=== PATIENT | male | born 1960 | race African-American/Black ===

== ENCOUNTER 2016-11-28 22:12 | Emergency (ER) | payer MEDICAID ==
[~2016-11-28] VITALS: Ht 193 cm; Wt 147.5 kg
[~2016-11-28 22:12] MED LIST: ALLO300T2 PO; ALPR0.5T3 PO; ATOR1TAB18 PO; BAYE325T; CARV25TA PO
[2016-11-28 22:14] VITALS: BP 158/88; PULSE 88; RESP 16; TEMP 98.2; O2SAT 96
--- NOTE | 2016-11-28 22:37 | PD ---
HPI Chief Complaint: Laceration/Skin Injury Time Seen by Provider: 22:33 Travel History International Travel<30 days: No Contact w/Intl Traveler<30days: No Traveled to known affect area: No History of Present Illness HPI 56-year-old male who is right handed, presents to the emergency department for evaluation of a laceration sustained to his left second digit. Patient states a saw-ad punctured his finger and cut it. Denies any alterations in sensation. No limitations range of motion. Patient has had a tetanus vaccination within the last 5 years. He has no symptoms to report. PFSH Past Medical History Arthritis: Yes Asthma: Yes Anxiety: Yes Depression: Yes Heart Rhythm Problems: Yes (occ palpatations) Cardiac Catheterization: Yes (X2- NO STENTS) Cardiomyopathy: Yes Cardiovascular Problems: Yes (HTN, ) High Cholesterol: Yes Chest Pain: Yes Congestive Heart Failure: Yes COPD: No Coronary Artery Disease: Yes Diabetes: No Diminished Hearing: No Gastrointestinal Disorders: Yes (COLONOSCOPY & UPPER GI) GERD: Yes Gout: Yes Headaches: Yes Hiatal Hernia: Yes Hypertension: Yes Implanted Vascular Access Dvce: No Kidney Stones: Yes Musculoskeletal: Yes (DEGENERATIVE DISC DISEASE) Migraines: Yes Ulcer: Yes PNEUMOCCOCAL Vaccine (Year): 1 Past Surgical History Body Medical Devices: SCREW IN CHIN Neurologic Surgery: No Oral Surgery: Yes (RIGHT JAW FX REPAIR) Other Surgery: Yes (CYST REMOVED FROM RIGHT FOREARM) Social History Alcohol Use: No Tobacco Use: No Substance Use: No Allergies-Medications (Allergen,Severity, Reaction): Coded Allergies: iodine (Unverified Allergy, Severe, "THROAT CLOSES", 11/06/16) potassium iodide (Unverified Allergy, Severe, "THROAT CLOSES", 11/06/16) povidone-iodine (Unverified Allergy, Severe, "THROAT CLOSES", 11/06/16) shellfish derived (Unverified Allergy, Severe, THROAT SWELLS, 11/06/16) sodium iodide (Unverified Allergy, Severe, "THROAT CLOSES", 11/06/16) sodium iodide (Unverified Allergy, Severe, "THROAT CLOSES", 11/06/16) Reported Meds & Prescriptions Reported Meds & Active Scripts Active Ibuprofen 800 Mg Tab 800 Mg PO Q8H PRN Keflex (Cephalexin) 500 Mg Cap 500 Mg PO Q6H 5 Days Reported Carvedilol 25 Mg Tab 25 Mg PO DAILY Allopurinol 300 Mg Tab 600 Mg PO DAILY PRN Alprazolam 0.5 Mg Tab 0.5 Mg PO Q4H PRN Atorvastatin (Atorvastatin Calcium) 80 Mg Tab 80 Mg PO HS Cande Aspirin (Aspirin) 325 Mg Tab Review of Systems Except as stated in HPI: all other systems reviewed are Neg Physical Exam Narrative GENERAL: Well-nourished, well-developed patient in no acute distress SKIN: Focused skin assessment warm/dry. 2 cm well approximated laceration on the lateral aspect of the volar surface of the distal left second digit. No bleeding. No drainage. Patient has full flexion extension of the digit. Sensation intact distal affected digit. HEAD: Normocephalic. EYES: No scleral icterus. No injection or drainage. NECK: Supple, trachea midline. No JVD or lymphadenopathy. CARDIOVASCULAR: Regular rate and rhythm without murmurs, gallops, or rubs. RESPIRATORY: Breath sounds equal bilaterally. No accessory muscle use. MUSCULOSKELETAL: No cyanosis, or edema. Data Data Last Documented VS Vital Signs Date Time Temp Pulse Resp B/P (MAP) Pulse Ox O2 Delivery O2 Flow Rate FiO2 11/28/16 23:23 11/28/16 22:14 98.2 88 16 96 Room Air Orders Orders Finger ([id number]) (11/28/16 ) Wound Care (11/28/16 22:36) Splint Or Brace Apply/Monitor (11/28/16 23:09) Finger Splint (11/28/16 ) MDM Medical Decision Making Medical Screen Exam Complete: Yes Emergency Medical Condition: Yes Medical Record Reviewed: Yes Differential Diagnosis Laceration superficial versus deep versus puncture wound versus abrasion versus avulsion versus foreign body versus open fracture Narrative Course 56-year-old male presents to emergency department for evaluation laceration left second digit. X-ray imaging is without acute abnormality. Wound is cleansed and dressed appropriately with a bird cage splint in place. It does not need approximation. Patient will be started on oral antibiotics empirically due to the puncture nature of the injury. He agrees to return immediately with any acute worsening symptoms. Diagnosis Primary Impression: Laceration of finger of left hand Qualified Codes: S61.211A - Laceration without foreign body of left index finger without damage to nail, initial encounter Additional Impression: Puncture wound Referrals: Primary Care Physician Patient Instructions: Acute Wound Care (DC), General Instructions Additional Instructions: Keep the area clean and dry. You may shower Apply antibiotic ointment and Band-Aid Wear splint for protection and comfort To the emergency department with any acute worsening of symptoms Med/Other Pt SpecificInfo: Prescription(s) given Scripts Ibuprofen (Ibuprofen) 800 Mg Tab 800 MG PO Q8H Y for Pain/Inflammation, #30 TAB 0 Refills Prov: Svitlana Peterson 11/28/16 Cephalexin (Keflex) 500 Mg Cap 500 MG PO Q6H for Infection for 5 Days, CAP 0 Refills Prov: Svitlana Peterson 11/28/16 Disposition: 01 DISCHARGE HOME Condition: Stable Svitlana Peterson Nov 28, 2016 22:37
--- NOTE | 2016-11-28 23:04 | RADRPT ---
EXAM DATE/TIME: 11/28/2016 22:53 [place] COMPARISON: No previous studies available for comparison. INDICATIONS : Patient cut finger with saw. MEDICAL HISTORY : None. SURGICAL HISTORY : None. ENCOUNTER: Initial ACUITY: 1 day PAIN SCORE: 6/10 LOCATION: Left 2nd digit. FINDINGS: Examination of the second digit of the left hand demonstrates no evidence of fracture or dislocation. No radiopaque foreign bodies are seen. Soft tissue swelling in the distal digit. CONCLUSION: 1. No acute fracture or dislocation. Carlyle Cisneros MD on November 28, 2016 at 23:01 Board Certified Radiologist. This report was verified electronically.
[2016-11-28] MEDS ORDERED: IBUP800T23 PO (23:20)
[2016-11-28] MEDS ORDERED: CEPH-460 PO (23:20)
== END 2016-11-28 23:31 | disposition home or self-care (01) ==
LOC: NEPD 22:12
DX: S61.211A Laceration without foreign body of left index finger without damage to nail, initial encounter (principal); I11.0 Hypertensive heart disease with heart failure; I50.9 Heart failure, unspecified; I25.10 Atherosclerotic heart disease of native coronary artery without angina pectoris; K21.9 Gastro-esophageal reflux disease without esophagitis; M10.9 Gout, unspecified; J45.909 Unspecified asthma, uncomplicated; F41.9 Anxiety disorder, unspecified; W45.8XXA Other foreign body or object entering through skin, initial encounter
CPT/HCPCS: 29130; 73140

== ENCOUNTER 2017-01-15 01:50 | Emergency (ER) | payer MEDICAID ==
[~2017-01-15] VITALS: Ht 193 cm; Wt 150.0 kg
[~2017-01-15 01:50] MED LIST changes: +CEPH-460 PO; +IBUP800T23 PO
[2017-01-15 01:51] VITALS: BP 141/88; PULSE 66; RESP 16; TEMP 98; O2SAT 98
--- NOTE | 2017-01-15 02:26 | PD ---
HPI Chief Complaint: Abdominal Pain Time Seen by Provider: 02:07 Travel History International Travel<30 days: No Contact w/Intl Traveler<30days: No Traveled to known affect area: No History of Present Illness HPI The patient is a 56 year old male who presents to the [facility] emergency department with a history of blood in his urine that began 2 weeks ago. He has dysuria, urinary frequency. He denies any urinary urgency. He has had a history of kidney stones in the past, however the symptoms do not feel similar. He denies having any abdominal pain or back pain that is new. Subsequent to that, a week ago after intercourse, he developed a blood blister that opened up on the glans of the penis and never healed. He reports that he has a burning sensation at the site. He denies having any new sexual partners. He reports having this in the past and it was able to be treated with Polysporin. He reports that the pain as a burning sensation. The patient reports that he is uncircumcised. The patient on review of systems denies having any recent fevers , cough, congestion, neck pain, chest pain, shortness of breath, abdominal pain , vomiting, diarrhea, or neurologic symptoms. The patient denies having any scrotal pain or swelling. He denies having any penile discharge. He reports that he last moved his bowels earlier today. He denies having any blood in his stool. [facility] Past Medical History Narrative Medical The patient's past medical history is significant for kidney stones, CHF, HTN, gout, hyperlipidemia, anxiety and depression, chronic back pain due to degenerative disc disease. PCP: Dr. Rodo Sutton. Arthritis: Yes Asthma: Yes Anxiety: Yes Depression: Yes Heart Rhythm Problems: Yes (occ palpatations) Cardiac Catheterization: Yes (X2- NO STENTS) Cardiomyopathy: Yes Cardiovascular Problems: Yes (HTN, ) High Cholesterol: Yes Chest Pain: Yes Congestive Heart Failure: Yes COPD: No Coronary Artery Disease: Yes Diabetes: No Diminished Hearing: No Gastrointestinal Disorders: Yes (COLONOSCOPY & UPPER GI) GERD: Yes Gout: Yes Headaches: Yes Hiatal Hernia: Yes Hypertension: Yes Implanted Vascular Access Dvce: No Kidney Stones: Yes Musculoskeletal: Yes (DEGENERATIVE DISC DISEASE) Neurologic: Yes (DEGENERATIVE DISC DISEASE) Psychiatric: Yes Immunizations Current: Yes Migraines: Yes Ulcer: Yes PNEUMOCCOCAL Vaccine (Year): 1 Past Surgical History Narrative Surgical The patient's past surgical history is significant for facial surgery, cyst removal from the right forearm, history of cardiac catheterization which he reports was found to be normal. Body Medical Devices: SCREW IN CHIN Coronary Artery Bypass Graft: No Neurologic Surgery: No Oral Surgery: Yes (RIGHT JAW FX REPAIR) Other Surgery: Yes (CYST REMOVED FROM RIGHT FOREARM) Family History Family Myocardial Infarction: Yes Social History Alcohol Use: No Tobacco Use: No Substance Use: No Allergies-Medications (Allergen,Severity, Reaction): Coded Allergies: iodine (Unverified Allergy, Severe, "THROAT CLOSES", 01/15/17) potassium iodide (Unverified Allergy, Severe, "THROAT CLOSES", 01/15/17) povidone-iodine (Unverified Allergy, Severe, "THROAT CLOSES", 01/15/17) shellfish derived (Unverified Allergy, Severe, THROAT SWELLS, 01/15/17) sodium iodide (Unverified Allergy, Severe, "THROAT CLOSES", 01/15/17) sodium iodide (Unverified Allergy, Severe, "THROAT CLOSES", 01/15/17) Reported Meds & Prescriptions Reported Meds & Active Scripts Active Miconazole Topical 2% Cream 1 Applic TOPICAL BID 14 Days Ibuprofen 800 Mg Tab 800 Mg PO Q8H PRN Keflex (Cephalexin) 500 Mg Cap 500 Mg PO Q6H 5 Days Reported Carvedilol 25 Mg Tab 25 Mg PO DAILY Allopurinol 300 Mg Tab 600 Mg PO DAILY PRN Alprazolam 0.5 Mg Tab 0.5 Mg PO Q4H PRN Atorvastatin (Atorvastatin Calcium) 80 Mg Tab 80 Mg PO HS Cande Aspirin (Aspirin) 325 Mg Tab [place] 10mg po q tid prn pain Review of Systems Except as stated in HPI: all other systems reviewed are Neg General / Constitutional: No: Fever Eyes: No: Visual changes HENT: No: Headaches Cardiovascular: No: Chest Pain or Discomfort Respiratory: No: Shortness of Breath Gastrointestinal: No: Abdominal Pain Genitourinary: Positive: Frequency, Dysuria, Hematuria, No: Urgency Musculoskeletal: No: Pain Skin: No Rash Neurologic: No: Weakness Psychiatric: No: Depression Endocrine: No: Polydipsia Hematologic/Lymphatic: No: Easy Bruising Physical Exam Narrative General: The patient is a well-developed well-nourished male in no acute distress. Head and Neck exam: Head is normocephalic atraumatic. Eyes: EOMI, pupils are equal round and reactive to light. Nose: Midline septum with pink mucous membranes Mouth: Dentition unremarkable. Moist mucus membranes. Posterior oropharynx is not erythematous. No tonsillar hypertrophy. Uvula midline. Airway patent. Neck: No palpable lymphadenopathy. No nuchal rigidity. No thyromegaly. Cardiovascular: Regular rate and rhythm without murmurs, gallops, or rubs. Lungs: Clear to auscultation bilaterally. No wheezes, rhonchi, or rales. Abdomen: Soft, without tenderness to palpation in all 4 quadrants of the abdomen. No guarding, rebound, or rigidity. Normal bowel sounds are audible. No tenderness on palpation of McBurney's point. Extremities: No clubbing, cyanosis, or edema. 2+ pulses in all 4 extremities. Back: No spinous process tenderness to palpation. No costovertebral angle tenderness to palpation. Neurologic Exam: Grossly nonfocal. Skin Exam: Skin is warm and dry. Genital exam: The patient is a uncircumcised male. With retraction of the patient's foreskin the patient is noted to have erythema and superficial skin breakdown over the glans of the penis. This is consistent with a balanitis. No scrotal swelling or pain on palpation. No palpable hernia. Data Data Last Documented VS Vital Signs Date Time Temp Pulse Resp B/P (MAP) Pulse Ox O2 Delivery O2 Flow Rate FiO2 01/15/17 01:51 98.0 66 16 141/88 (105) 98 Room Air Orders Orders Complete Blood Count With Diff (01/15/17 02:38) Basic Metabolic Panel (Bmp) (01/15/17 02:38) Urinalysis - C+S If Indicated (01/15/17 02:38) Wound Culture And Gram Stain (01/15/17 02:38) Iv Access Insert/Monitor (01/15/17 02:38) Ecg Monitoring (01/15/17 02:38) Oximetry (01/15/17 02:38) Ed Discharge Order (01/15/17 03:35) Labs Laboratory Tests Test 01/15/17 02:50 White Blood Count 5.0 TH/MM3 Red Blood Count 4.38 MIL/MM3 Hemoglobin 13.3 GM/DL Hematocrit 38.6 % Mean Corpuscular Volume 88.1 FL Mean Corpuscular Hemoglobin 30.4 PG Mean Corpuscular Hemoglobin Concent 34.4 % Red Cell Distribution Width 13.0 % Platelet Count 216 TH/MM3 Mean Platelet Volume 7.7 FL Neutrophils (%) (Auto) 38.9 % Lymphocytes (%) (Auto) 51.1 % Monocytes (%) (Auto) 7.6 % Eosinophils (%) (Auto) 1.3 % Basophils (%) (Auto) 1.1 % Neutrophils # (Auto) 1.9 TH/MM3 Lymphocytes # (Auto) 2.5 TH/MM3 Monocytes # (Auto) 0.4 TH/MM3 Eosinophils # (Auto) 0.1 TH/MM3 Basophils # (Auto) 0.1 TH/MM3 CBC Comment DIFF FINAL Differential Comment Urine Color YELLOW Urine Turbidity CLEAR Urine pH 5.5 Urine Specific [place] 1.031 Urine Protein TRACE mg/dL Urine Glucose (UA) NEG mg/dL Urine Ketones NEG mg/dL Urine Occult Blood NEG Urine Nitrite NEG Urine Bilirubin NEG Urine Urobilinogen 2.0 MG/DL Urine Leukocyte Esterase TRACE Urine RBC 2 /hpf Urine WBC 3 /hpf Urine Squamous Epithelial Cells 1 /hpf Urine Hyaline Casts 10 /lpf Urine Mucus FEW /lpf Microscopic Urinalysis Comment CULT NOT INDICATED Blood Urea Nitrogen 11 MG/DL Creatinine 0.86 MG/DL Random Glucose 94 MG/DL Calcium Level 8.5 MG/DL Sodium Level 140 MEQ/L Potassium Level 4.3 MEQ/L Chloride Level 108 MEQ/L Carbon Dioxide Level 28.1 MEQ/L Anion Gap 4 MEQ/L Estimat Glomerular Filtration Rate 111 ML/MIN [facility] Medical Decision Making Medical Screen Exam Complete: Yes Emergency Medical Condition: Yes Medical Record Reviewed: Yes Differential Diagnosis Yeast balanitis, versus bacterial balanitis, versus kidney stone, versus cystitis, versus phimosis Narrative Course During the course of the patients emergency department visit, the patients history, examination, and differential diagnosis were reviewed with the patient. The patient was placed on a skin diving teacher with oximetry and frequent blood pressure monitoring. The patient had IV access obtained and blood work sent for analysis. The patients laboratory studies were reviewed and remarkable for white count of 5, hemoglobin 13.3, platelets 216 with lymphocytes 51.1, basic metabolic profile is remarkable for chloride of 108, anion gap 4, glucose 94, urinalysis is unremarkable. Wound culture is pending. The patient's symptoms are most consistent with a balanitis. The patient appears to have a superimposed bacterial infection associated with this. The patient will be discharged home with topical miconazole and oral Keflex. The patient is instructed to follow-up with his primary care physician for reexamination in one week for improvement. The patient is resting comfortably and feels better, is alert and in no distress. The patients results and examination findings were discussed with the patient. The repeat examination is unremarkable and benign. The history, exam, diagnostic testing, and current condition do not suggest any significant pathology to warrant further testing, continued ED treatment, admission, or surgical evaluation at this point. The vital signs have been stable. The patient does not have uncontrollable pain, intractable vomiting, or other significant symptoms. The patient's condition is stable and appropriate for discharge. The patient will pursue further outpatient evaluation with a primary care physician or other designated or consulting physician as indicated in the discharge instructions. The patient expressed understanding and was agreeable with this plan. Diagnosis Primary Impression: Balanitis Referrals: Primary Care Physician 1 week Patient Instructions: [place] (ED), General Instructions Med/Other Pt SpecificInfo: Prescription(s) given Scripts Cephalexin (Keflex) 500 Mg Capsule 500 MG PO Q8H for Infection, #30 CAP 0 Refills Prov: Zaida Landaverde MD 01/15/17 Miconazole Topical (Miconazole Topical) 2% Cream 1 APPLIC TOPICAL BID for 14 Days, GM 0 Refills Prov: Zaida Landaverde MD 01/15/17 Disposition: 01 DISCHARGE HOME Condition: Stable Zaida Landaverde MD Jan 15, 2017 02:26
[2017-01-15 03:09] LABS: AUTOMATED NEUTROPHIL # 1.9 TH/MM3 (1.8-7.7); BASOPHIL # 0.1 TH/MM3 (0-0.2); BASOPHIL % 1.1 % (0.0-2.0); EOSINOPHIL # 0.1 TH/MM3 (0-0.4); EOSINOPHIL % 1.3 % (0.0-4.0); HEMATOCRIT 38.6 % (39.0-51.0); HEMO FLAGS DIFF FINAL; LYMPH % 51.1 % (9.0-44.0); LYMPHOCYTE # 2.5 TH/MM3 (1.0-4.8); MEAN CELL VOLUME 88.1 FL (80.0-100.0); MEAN CORPUSCULAR HEMOGLOBIN 30.4 PG (27.0-34.0); MEAN CORPUSCULAR HGB CONC 34.4 % (32.0-36.0); MONO % 7.6 % (0.0-8.0); NEUT % 38.9 % (16.0-70.0); PLATELET COUNT 216 TH/MM3 (150-450); RED BLOOD COUNT 4.38 MIL/MM3 (4.50-5.90)
[2017-01-15] MEDS ORDERED: MICO2CRE34 TOPICAL (03:11)
[2017-01-15 03:17] LABS: BLOOD, URINE NEG (NEG); COMMENT (UR) CULT NOT INDICATED; CULTURE IF INDICATED CULT NOT INDICATED; GLUCOSE,URINE NEG (NEG); HYALINE CAST, URINE 10 /lpf (RARE); KETONE, URINE NEG (NEG); MUCUS URINE FEW /lpf (OCC); NITRITE,URINE NEG (NEG); PH, URINE 5.5 (5.0-8.5); SQUAMOUS EPITHELIAL CELL URINE 1 /hpf (0-5); URINE COLOR YELLOW (YELLW/STRAW)
[2017-01-15 03:28] LABS: BICARBONATE 28.1 MEQ/L (21.0-32.0); POTASSIUM 4.3 MEQ/L (3.5-5.1)
[2017-01-15] MEDS ORDERED: CEPH-460 PO (03:37)
== END 2017-01-15 03:49 | disposition home or self-care (01) ==
LOC: NEPE 01:50
DX: N48.1 Balanitis (principal); I11.0 Hypertensive heart disease with heart failure; I50.9 Heart failure, unspecified; M10.9 Gout, unspecified; E78.5 Hyperlipidemia, unspecified; J45.909 Unspecified asthma, uncomplicated; M19.90 Unspecified osteoarthritis, unspecified site; I25.10 Atherosclerotic heart disease of native coronary artery without angina pectoris; Z87.442 Personal history of urinary calculi
CPT/HCPCS: 80048; 81001; 85025; 86403; 87070; 99284

== ENCOUNTER 2017-07-06 18:21 | Emergency (ER) | payer MEDICAID ==
[~2017-07-06 18:21] MED LIST changes: -ATOR1TAB18 PO; +ATOR80TA45 PO; +IBUP1TAB7 PO; -IBUP800T23 PO; +MICO2CRE34 TOPICAL
[2017-07-06 18:24] VITALS: BP 158/85; PULSE 64; RESP 20; TEMP 97.8; O2SAT 100
[2017-07-06] MEDS ORDERED: SODIUM CHLORIDE 0.9% FLUSH 10 ML FLUSH IVF PRN (18:45)
[2017-07-06] MEDS ORDERED: ACETAMINOPHEN 325 MG TAB PO ONE (18:45)
[2017-07-06] MEDS ORDERED: SODIUM CHLOR 0.9% 250 ML INJ 250 ML IV ONE (18:45)
[2017-07-06] MEDS ORDERED: KETOROLAC TROMETHAMINE 30 MG/ML (IVP) VIAL IVP ONE (18:45)
[2017-07-06] MEDS ORDERED: PROCHLORPERAZINE INJ 10 MG/2 ML VIAL IVP ONE (18:45)
[2017-07-06] MEDS ORDERED: diphenhydrAMINE HCL 50 MG/ML VIAL IVP ONE (18:45)
--- NOTE | 2017-07-06 18:46 | PD ---
HPI Chief Complaint: Cardiac Complaint Time Seen by Provider: 18:30 Travel History International Travel<30 days: No Contact w/Intl Traveler<30days: No Traveled to known affect area: No History of Present Illness HPI The patient is a 57-year-old -[place] male who presents to the emergency department with family for multiple complaints including chest pain, headache, and a lump in the throat. The patient states his symptoms started earlier today with chest pain which is described as sharp, intermittent, stabbing, and lasting seconds to minutes. The patient denies any shortness of breath, nausea, vomiting, or diaphoresis. He also notes a headache which started earlier today, gradual onset, frontal in location, throbbing, without any photophobia, nausea, or vomiting. He has had similar headaches in the past secondary to hangovers. He denies any thunderclap quality, posterior neck pain , or fever. He also complains of a lump in the throat that started after the patient's chest pain started. The patient does have a history of congestive heart failure, is followed by his tax professional, Dr. Grier, and his primary physician, Dr. Dao Sutton. The patient denies any acute weakness of the upper or lower extremities. Symptoms are moderate. No current alleviating or exacerbating factors. PFSH Past Medical History Arthritis: Yes Asthma: Yes Anxiety: Yes Depression: Yes Heart Rhythm Problems: Yes (occ palpatations) Cardiac Catheterization: Yes (X2- NO STENTS) Cardiomyopathy: Yes Cardiovascular Problems: Yes High Cholesterol: Yes Chest Pain: Yes Congestive Heart Failure: Yes COPD: No Coronary Artery Disease: Yes Diabetes: No Diminished Hearing: No Gastrointestinal Disorders: Yes (COLONOSCOPY & UPPER GI) GERD: Yes Gout: Yes Headaches: Yes Hiatal Hernia: Yes Hypertension: Yes Implanted Vascular Access Dvce: No Kidney Stones: Yes Musculoskeletal: Yes (DEGENERATIVE DISC DISEASE) Neurologic: Yes (DEGENERATIVE DISC DISEASE) Psychiatric: Yes Immunizations Current: Yes Migraines: Yes Ulcer: Yes PNEUMOCCOCAL Vaccine (Year): 1 Past Surgical History Body Medical Devices: SCREW IN CHIN Coronary Artery Bypass Graft: No Neurologic Surgery: No Oral Surgery: Yes (RIGHT JAW FX REPAIR) Other Surgery: Yes (CYST REMOVED FROM RIGHT FOREARM) Social History Alcohol Use: No Tobacco Use: No Substance Use: No Allergies-Medications (Allergen,Severity, Reaction): Coded Allergies: iodine (Unverified Allergy, Severe, "THROAT CLOSES", 01/15/17) potassium iodide (Unverified Allergy, Severe, "THROAT CLOSES", 01/15/17) povidone-iodine (Unverified Allergy, Severe, "THROAT CLOSES", 01/15/17) shellfish derived (Unverified Allergy, Severe, THROAT SWELLS, 01/15/17) sodium iodide (Unverified Allergy, Severe, "THROAT CLOSES", 01/15/17) sodium iodide (Unverified Allergy, Severe, "THROAT CLOSES", 01/15/17) Reported Meds & Prescriptions Reported Meds & Active Scripts Active Reported Carvedilol 25 Mg Tab 25 Mg PO DAILY Allopurinol 300 Mg Tab 600 Mg PO DAILY PRN Alprazolam 0.5 Mg Tab 0.5 Mg PO Q4H PRN Atorvastatin (Atorvastatin Calcium) 80 Mg Tab 80 Mg PO HS Cande Aspirin (Aspirin) 325 Mg Tab Review of Systems Except as stated in HPI: all other systems reviewed are Neg General / Constitutional: No: Fever Eyes: No: Blurred Vision, Photophobia HENT: Positive: Headaches, Other (Lump in his throat), No: Lightheadedness, Neck Pain Cardiovascular: Positive: Chest Pain or Discomfort (Sharp, stabbing, intermittent), No: Diaphoresis Respiratory: No: Shortness of Breath Gastrointestinal: No: Nausea, Vomiting, Abdominal Pain Neurologic: Positive: Headache, No: Dizziness, Change in Mentation, Paresthesia , Sensory Disturbance Physical Exam Narrative GENERAL: Awake, alert, very pleasant 57-year-old male who appears his stated age and is in no acute respiratory distress. SKIN: Focused skin assessment warm/dry. HEAD: Atraumatic. Normocephalic. EYES: Pupils equal and round. Pupils are 4 mm bilateral and reactive. EOMs are intact. Patient is able to see fingers at a distance of 2 feet without difficulty. ENT: No nasal bleeding or discharge. Mucous membranes pink and moist. NECK: Trachea midline. No JVD. No meningeal signs. CARDIOVASCULAR: Regular rate and rhythm. No murmur appreciated. RESPIRATORY: No accessory muscle use. Clear to auscultation. Breath sounds equal bilaterally. GASTROINTESTINAL: Abdomen soft, non-tender, nondistended. MUSCULOSKELETAL: No obvious deformities. Bilateral lower extremity trace edema. NEUROLOGICAL: Awake and alert. No obvious cranial nerve deficits. Motor grossly within normal limits. Normal speech. Nonfocal. Oriented 4. Follows commands without difficulty. PSYCHIATRIC: Appropriate mood and affect; insight and judgment normal. Data Data Last Documented VS Vital Signs Date Time Temp Pulse Resp B/P (MAP) Pulse Ox O2 Delivery O2 Flow Rate FiO2 07/06/17 23:41 07/06/17 19:06 16 98 Room Air 07/06/17 19:06 61 07/06/17 18:24 97.8 Orders Orders Electrocardiogram (07/06/17 18:38) Ckmb (Isoenzyme) Profile (07/06/17 18:38) Complete Blood Count With Diff (07/06/17 18:38) Comprehensive Metabolic Panel (07/06/17 18:38) Magnesium (Mg) (07/06/17 18:38) Prothrombin Time / Inr (Pt) (07/06/17 18:38) Act Partial Throm Time (Ptt) (07/06/17 18:38) Troponin I (07/06/17 18:38) Ecg Monitoring (07/06/17 18:38) Bilateral Bp Monitoring (07/06/17 18:38) Iv Access Insert/Monitor (07/06/17 18:38) Oximetry (07/06/17 18:38) Oxygen Administration (07/06/17 18:38) Chest, Pa & Lat (07/06/17 18:38) Sodium Chloride 0.9% Flush (Ns Flush) (07/06/17 18:45) Acetaminophen (Tylenol) (07/06/17 18:45) Ketorolac Inj (Toradol Inj) (07/06/17 18:45) Prochlorperazine Inj (Compazine Inj) (07/06/17 18:45) Diphenhydramine Inj (Benadryl Inj) (07/06/17 18:45) Sodium Chlor 0.9% 250 Ml Inj (Ns 250 Ml (07/06/17 18:45) CKMB (07/06/17 18:50) CKMB% (07/06/17 18:50) Troponin I (07/06/17 20:38) Ed Discharge Order (07/06/17 22:26) Labs Laboratory Tests Test 07/06/17 18:50 07/06/17 21:25 White Blood Count 5.7 TH/MM3 Red Blood Count 4.20 MIL/MM3 Hemoglobin 13.1 GM/DL Hematocrit 36.5 % Mean Corpuscular Volume 87.0 FL Mean Corpuscular Hemoglobin 31.3 PG Mean Corpuscular Hemoglobin Concent 36.0 % Red Cell Distribution Width 12.7 % Platelet Count 193 TH/MM3 Mean Platelet Volume 7.3 FL Neutrophils (%) (Auto) 37.4 % Lymphocytes (%) (Auto) 52.0 % Monocytes (%) (Auto) 9.1 % Eosinophils (%) (Auto) 1.1 % Basophils (%) (Auto) 0.4 % Neutrophils # (Auto) 2.1 TH/MM3 Lymphocytes # (Auto) 2.9 TH/MM3 Monocytes # (Auto) 0.5 TH/MM3 Eosinophils # (Auto) 0.1 TH/MM3 Basophils # (Auto) 0.0 TH/MM3 CBC Comment AUTO DIFF Differential Comment AUTO DIFF CONFIRMED Platelet Estimate NORMAL Platelet Morphology Comment NORMAL Prothrombin Time 10.6 SEC Prothromb Time International Ratio 1.0 RATIO Activated Partial Thromboplast Time 25.3 SEC Blood Urea Nitrogen 9 MG/DL Creatinine 0.94 MG/DL Random Glucose 106 MG/DL Total Protein 7.3 GM/DL Albumin 3.7 GM/DL Calcium Level 8.6 MG/DL Magnesium Level 2.0 MG/DL Alkaline Phosphatase 91 U/L Aspartate Amino Transf (AST/SGOT) 19 U/L Alanine Aminotransferase (ALT/SGPT) 22 U/L Total Bilirubin 0.2 MG/DL Sodium Level 142 MEQ/L Potassium Level 3.8 MEQ/L Chloride Level 107 MEQ/L Carbon Dioxide Level 29.2 MEQ/L Anion Gap 6 MEQ/L Estimat Glomerular Filtration Rate 100 ML/MIN Total Creatine Kinase 155 U/L Creatine Kinase MB 1.1 NG/ML Troponin I LESS THAN 0.02 NG/ML LESS THAN 0.02 NG/ML MDM Medical Decision Making Medical Screen Exam Complete: Yes Emergency Medical Condition: Yes Medical Record Reviewed: Yes Differential Diagnosis Differential diagnosis includes tension headache, migraine, intracranial hemorrhage, sinusitis, temporal arteritis, subarachnoid hemorrhage, glaucoma, ACS, pneumothorax, pleurisy, GERD, esophageal spasm, pulmonary embolism. Narrative Course IV was established, labs are drawn and sent, and the patient was placed on cardiac telemetry monitoring and continuous pulse oximetry monitoring. EKG was ordered and interpreted. Chest x-ray was obtained. The patient was administered Toradol, Tylenol, Benadryl, Compazine, and IV fluids. The patient already took aspirin at home earlier today. The patient was signed out to the oncoming physician at 7 PM. Diagnosis Primary Impression: Atypical chest pain Additional Impression: Cephalgia Qualified Codes: R51 - Headache Condition: Stable Jose Manuel Akins MD Jul 06, 2017 18:46
[2017-07-06 19:05] VITALS: BP 139/76; PULSE 61; RESP 16; O2SAT 98
[2017-07-06 19:06] VITALS: RESP 16; O2SAT 98
[2017-07-06 19:11] LABS: PROTHROMBIN TIME - PATIENT 10.6 SEC (9.8-11.6)
[2017-07-06 19:15] LABS: ALBUMIN 3.7 GM/DL (3.4-5.0); AST (GOT) 19 U/L (15-37); BICARBONATE 29.2 MEQ/L (21.0-32.0); BLOOD UREA NITROGEN 9 MG/DL (7-18); CALCIUM 8.6 MG/DL (8.5-10.1); CHLORIDE 107 MEQ/L (98-107); CREATININE 0.94 MG/DL (0.60-1.30); GLOMERULAR FILTRATION RATE 100 ML/MIN (>89); GLUCOSE,RANDOM 106 MG/DL (74-106); SODIUM (NA) 142 MEQ/L (136-145)
[2017-07-06 19:16] LABS: ALT (GPT) 22 U/L (12-78)
[2017-07-06 19:20] LABS: ALKALINE PHOSPHATASE 91 U/L (45-117); TOTAL BILIRUBIN ADULT 0.2 MG/DL (0.2-1.0); TOTAL PROTEIN 7.3 GM/DL (6.4-8.2); TROPONIN I LESS THAN 0.02 NG/ML (0.02-0.05)
--- NOTE | 2017-07-06 19:21 | RADRPT ---
EXAM DATE/TIME: 07/06/2017 18:58 [facility] COMPARISON: No previous studies available for comparison. INDICATIONS : Shortness of breath and chest pain. MEDICAL HISTORY : Congestive heart failure. Hypertension SURGICAL HISTORY : None. ENCOUNTER: Initial ACUITY: 1 day PAIN SCORE: 6/10 LOCATION: Bilateral chest FINDINGS: PA and lateral views of the chest demonstrate the lungs to be symmetrically aerated without evidence of mass, infiltrate or effusion. The cardiomediastinal contours are unremarkable. Osseous structure s are intact. CONCLUSION: No acute cardiopulmonary disease. Dean Vo MD on July 06, 2017 at 19:19 Board Certified Radiologist. This report was verified electronically.
[2017-07-06 19:23] LABS: AUTOMATED NEUTROPHIL # 2.1 TH/MM3 (1.8-7.7); BASOPHIL % 0.4 % (0.0-2.0); EOSINOPHIL # 0.1 TH/MM3 (0-0.4); EOSINOPHIL % 1.1 % (0.0-4.0); HEMATOCRIT 36.5 % (39.0-51.0); HEMOGLOBIN 13.1 GM/DL (13.0-17.0); LYMPHOCYTE # 2.9 TH/MM3 (1.0-4.8); MEAN CORPUSCULAR HEMOGLOBIN 31.3 PG (27.0-34.0); MEAN PLATELET VOLUME 7.3 FL (7.0-11.0); MONO % 9.1 % (0.0-8.0); MONOCYTE # 0.5 TH/MM3 (0-0.9); NEUT % 37.4 % (16.0-70.0); PLATELET COUNT 193 TH/MM3 (150-450); RED CELL DISTRIBUTION WIDTH 12.7 % (11.6-17.2); WHITE BLOOD COUNT 5.7 TH/MM3 (4.0-11.0)
--- NOTE | 2017-07-06 22:23 | PD ---
Data Data Last Documented VS Vital Signs Date Time Temp Pulse Resp B/P (MAP) Pulse Ox O2 Delivery O2 Flow Rate FiO2 07/06/17 23:41 07/06/17 19:06 16 98 Room Air 07/06/17 19:06 61 07/06/17 18:24 97.8 Orders Orders Electrocardiogram (07/06/17 18:38) Ckmb (Isoenzyme) Profile (07/06/17 18:38) Complete Blood Count With Diff (07/06/17 18:38) Comprehensive Metabolic Panel (07/06/17 18:38) Magnesium (Mg) (07/06/17 18:38) Prothrombin Time / Inr (Pt) (07/06/17 18:38) Act Partial Throm Time (Ptt) (07/06/17 18:38) Troponin I (07/06/17 18:38) Ecg Monitoring (07/06/17 18:38) Bilateral Bp Monitoring (07/06/17 18:38) Iv Access Insert/Monitor (07/06/17 18:38) Oximetry (07/06/17 18:38) Oxygen Administration (07/06/17 18:38) Chest, Pa & Lat (07/06/17 18:38) Sodium Chloride 0.9% Flush (Ns Flush) (07/06/17 18:45) Acetaminophen (Tylenol) (07/06/17 18:45) Ketorolac Inj (Toradol Inj) (07/06/17 18:45) Prochlorperazine Inj (Compazine Inj) (07/06/17 18:45) Diphenhydramine Inj (Benadryl Inj) (07/06/17 18:45) Sodium Chlor 0.9% 250 Ml Inj (Ns 250 Ml (07/06/17 18:45) CKMB (07/06/17 18:50) CKMB% (07/06/17 18:50) Troponin I (07/06/17 20:38) Ed Discharge Order (07/06/17 22:26) Labs Laboratory Tests Test 07/06/17 18:50 07/06/17 21:25 White Blood Count 5.7 TH/MM3 Red Blood Count 4.20 MIL/MM3 Hemoglobin 13.1 GM/DL Hematocrit 36.5 % Mean Corpuscular Volume 87.0 FL Mean Corpuscular Hemoglobin 31.3 PG Mean Corpuscular Hemoglobin Concent 36.0 % Red Cell Distribution Width 12.7 % Platelet Count 193 TH/MM3 Mean Platelet Volume 7.3 FL Neutrophils (%) (Auto) 37.4 % Lymphocytes (%) (Auto) 52.0 % Monocytes (%) (Auto) 9.1 % Eosinophils (%) (Auto) 1.1 % Basophils (%) (Auto) 0.4 % Neutrophils # (Auto) 2.1 TH/MM3 Lymphocytes # (Auto) 2.9 TH/MM3 Monocytes # (Auto) 0.5 TH/MM3 Eosinophils # (Auto) 0.1 TH/MM3 Basophils # (Auto) 0.0 TH/MM3 CBC Comment AUTO DIFF Differential Comment AUTO DIFF CONFIRMED Platelet Estimate NORMAL Platelet Morphology Comment NORMAL Prothrombin Time 10.6 SEC Prothromb Time International Ratio 1.0 RATIO Activated Partial Thromboplast Time 25.3 SEC Blood Urea Nitrogen 9 MG/DL Creatinine 0.94 MG/DL Random Glucose 106 MG/DL Total Protein 7.3 GM/DL Albumin 3.7 GM/DL Calcium Level 8.6 MG/DL Magnesium Level 2.0 MG/DL Alkaline Phosphatase 91 U/L Aspartate Amino Transf (AST/SGOT) 19 U/L Alanine Aminotransferase (ALT/SGPT) 22 U/L Total Bilirubin 0.2 MG/DL Sodium Level 142 MEQ/L Potassium Level 3.8 MEQ/L Chloride Level 107 MEQ/L Carbon Dioxide Level 29.2 MEQ/L Anion Gap 6 MEQ/L Estimat Glomerular Filtration Rate 100 ML/MIN Total Creatine Kinase 155 U/L Creatine Kinase MB 1.1 NG/ML Troponin I LESS THAN 0.02 NG/ML LESS THAN 0.02 NG/ML [facility] Medical Record Reviewed: Yes Supervised Visit with ROSCOE: No Narrative Course CBC & BMP Diagram 07/06/17 18:50 Total Protein 7.3, Albumin 3.7, Calcium Level 8.6, Magnesium Level 2.0, Alkaline Phosphatase 91, Aspartate Amino Transf (AST/SGOT) 19, Alanine Aminotransferase (ALT/SGPT) 22, Total Bilirubin 0.2 Troponin negative x 2 Last Impressions Chest X-Ray 07/06/17 0531 Signed Impressions: Service Date/Time: Thursday, July 06, 2017 18:58 - CONCLUSION: No acute cardiopulmonary disease. Dean Vo MD EKG: sinus rate 70 no acute ischemic pattern Pt resting comfortably in ED at time of reassessment. Work up is unremarkable. Coronary disease is considered reasonably safely excluded. Pt ready for discharge. Diagnosis Primary Impression: Atypical chest pain Additional Impression: Cephalgia Qualified Codes: R51 - Headache Referrals: Primary Care Physician call for appointment Patient Instructions: General Instructions Med/Other Pt SpecificInfo: No Change to Meds Disposition: 01 DISCHARGE HOME Condition: Stable Mauricio Cyr MD Jul 06, 2017 22:23
--- NOTE | 2017-07-07 15:36 | EKG ---
Date Performed: 07/06/2017 Time Performed: 19:25:52 PTAGE: 57 years EKG: Sinus rhythm POSSIBLE RIGHT VENTRICULAR CONDUCTION DELAY NONSPECIFIC T-WAVE ABNORMALITY BORDERLINE ECG Compared t o PREVIOUS TRACING , the patient has a new intraventricular conduction delay and nonspecifi c ST-T wave changes. PREVIOUS TRACIN03/16/2016 20.37 DOCTOR: Marion Collazo Interpretating Date/Time 07/07/2017 15:34:50
== END 2017-07-06 23:42 | disposition home or self-care (01) ==
LOC: NEPC 18:21
DX: R07.89 Other chest pain (principal); R51 Headache; E78.00 Pure hypercholesterolemia, unspecified; M10.9 Gout, unspecified; I11.0 Hypertensive heart disease with heart failure; I50.9 Heart failure, unspecified
CPT/HCPCS: 71046; 80053; 82550; 82552; 83735; 84484; 85025; 85610; 85730; 93005; 96374; 96375; 99285; J0780; J1200; J1885; J7050

== ENCOUNTER 2017-07-22 20:10 | Emergency (ER) | payer MEDICAID ==
[~2017-07-22] VITALS: Ht 193 cm; Wt 143.2 kg
[~2017-07-22 20:10] MED LIST changes: -CEPH-460 PO; -IBUP1TAB7 PO; -MICO2CRE34 TOPICAL
[2017-07-22 20:12] VITALS: BP 157/81; PULSE 73; RESP 20; TEMP 98.2; O2SAT 99
[2017-07-22] MEDS ORDERED: SODIUM CHLOR 0.9% 1000 ML INJ 1,000 ML IV SCH (20:22)
--- NOTE | 2017-07-22 20:25 | PD ---
HPI Chief Complaint: Abdominal Pain Time Seen by Provider: 20:17 Travel History International Travel<30 days: No Contact w/Intl Traveler<30days: No Traveled to known affect area: No History of Present Illness HPI 57-year-old male here for evaluation of abdominal pain. The patient reports that at around 4:30 PM today after eating [employer] he began to experience mid abdominal pain. He rates the pain as 10 out of 10, sharp, nonradiating, constant, worse with walking. He feels nauseous but has not vomited. He tried taking Pepto-Bismol and eating saltine crackers, however symptoms seem to worsen. No fevers. No history of abdominal surgeries. PFSH Past Medical History Arthritis: Yes Asthma: Yes Anxiety: Yes Depression: Yes Heart Rhythm Problems: Yes (occ palpatations) Cardiac Catheterization: Yes (X2- NO STENTS) Cardiomyopathy: Yes Cardiovascular Problems: Yes (HTN, hyperlipidemia, CHF) High Cholesterol: Yes Chest Pain: Yes Congestive Heart Failure: Yes COPD: No Coronary Artery Disease: Yes Diabetes: No Diminished Hearing: No Gastrointestinal Disorders: Yes (COLONOSCOPY & UPPER GI) GERD: Yes Gout: Yes Headaches: Yes Hiatal Hernia: Yes Hypertension: Yes Implanted Vascular Access Dvce: No Kidney Stones: Yes Musculoskeletal: Yes (DEGENERATIVE DISC DISEASE) Neurologic: Yes (DEGENERATIVE DISC DISEASE) Psychiatric: Yes Immunizations Current: Yes Migraines: Yes Ulcer: Yes PNEUMOCCOCAL Vaccine (Year): 1 Past Surgical History Body Medical Devices: SCREW IN CHIN Coronary Artery Bypass Graft: No Neurologic Surgery: No Oral Surgery: Yes (RIGHT JAW FX REPAIR) Other Surgery: Yes (CYST REMOVED FROM RIGHT FOREARM) Social History Alcohol Use: No Tobacco Use: No Substance Use: No Allergies-Medications (Allergen,Severity, Reaction): Coded Allergies: iodine (Unverified Allergy, Severe, "THROAT CLOSES", 07/22/17) potassium iodide (Unverified Allergy, Severe, "THROAT CLOSES", 07/22/17) povidone-iodine (Unverified Allergy, Severe, "THROAT CLOSES", 07/22/17) shellfish derived (Unverified Allergy, Severe, THROAT SWELLS, 07/22/17) sodium iodide (Unverified Allergy, Severe, "THROAT CLOSES", 07/22/17) sodium iodide (Unverified Allergy, Severe, "THROAT CLOSES", 07/22/17) Reported Meds & Prescriptions Reported Meds & Active Scripts Active Clotrimazole Topical (Clotrimazole) 1% Soln 1 Applic TOPICAL BID Reported Carvedilol 25 Mg Tab 25 Mg PO DAILY Allopurinol 300 Mg Tab 600 Mg PO DAILY PRN Alprazolam 0.5 Mg Tab 0.5 Mg PO Q4H PRN Atorvastatin (Atorvastatin Calcium) 80 Mg Tab 80 Mg PO HS Cande Aspirin (Aspirin) 325 Mg Tab Review of Systems Except as stated in HPI: all other systems reviewed are Neg Physical Exam Narrative GENERAL: Well-developed, well-nourished, comfortable, no apparent distress. SKIN: Focused skin assessment warm/dry. HEAD: Atraumatic. Normocephalic. EYES: Pupils equal and round. No scleral icterus. No injection or drainage. ENT: Mucous membranes pink and moist. NECK: Trachea midline. No JVD. CARDIOVASCULAR: Regular rate and rhythm. RESPIRATORY: No accessory muscle use. Clear to auscultation. Breath sounds equal bilaterally. GASTROINTESTINAL: Abdomen soft, nondistended. Moderate mid abdominal tenderness without peritoneal signs. Normal bowel sounds. No hernias. MUSCULOSKELETAL: No obvious deformities. No clubbing. No cyanosis. No edema. NEUROLOGICAL: Awake and alert. No obvious cranial nerve deficits. Motor grossly within normal limits. Normal speech. PSYCHIATRIC: Appropriate mood and affect; insight and judgment normal. Data Data Last Documented VS Vital Signs Date Time Temp Pulse Resp B/P (MAP) Pulse Ox O2 Delivery O2 Flow Rate FiO2 07/22/17 21:47 98 Room Air 07/22/17 20:12 98.2 73 20 157/81 (106) Orders Orders Complete Blood Count With Diff (07/22/17 20:22) Comprehensive Metabolic Panel (07/22/17 20:22) Lipase (07/22/17 20:22) Prothrombin Time / Inr (Pt) (07/22/17 20:22) Act Partial Throm Time (Ptt) (07/22/17 20:22) Urinalysis - C+S If Indicated (07/22/17 20:22) Iv Access Insert/Monitor (07/22/17 20:22) Ecg Monitoring (07/22/17 20:22) Oximetry (07/22/17 20:22) Sodium Chlor 0.9% 1000 Ml Inj (Ns 1000 M (07/22/17 20:22) Sodium Chloride 0.9% Flush (Ns Flush) (07/22/17 20:30) Diatrizoate Liq ( Gastrokala Liq) (07/22/17 20:30) Ct Abd/Pel W/O Iv Contrast (07/22/17 ) Morphine Inj (Morphine Inj) (07/22/17 20:30) Ondansetron Inj (Zofran Inj) (07/22/17 20:30) Al-Mag Hy-Si 40-40-4 Mg/Ml Liq (Mag-Al P (07/22/17 21:45) Lidocaine 2% Viscous (Xylocaine 2% Visco (07/22/17 21:45) Electrocardiogram (07/22/17 ) Fluconazole (Diflucan) (07/22/17 22:45) Ed Discharge Order (07/22/17 23:04) Labs Laboratory Tests Test 07/22/17 21:00 07/22/17 22:20 White Blood Count 7.6 TH/MM3 Red Blood Count 4.37 MIL/MM3 Hemoglobin 13.2 GM/DL Hematocrit 37.8 % Mean Corpuscular Volume 86.4 FL Mean Corpuscular Hemoglobin 30.2 PG Mean Corpuscular Hemoglobin Concent 35.0 % Red Cell Distribution Width 12.5 % Platelet Count 208 TH/MM3 Mean Platelet Volume 7.4 FL Neutrophils (%) (Auto) 75.3 % Lymphocytes (%) (Auto) 17.7 % Monocytes (%) (Auto) 6.3 % Eosinophils (%) (Auto) 0.3 % Basophils (%) (Auto) 0.4 % Neutrophils # (Auto) 5.7 TH/MM3 Lymphocytes # (Auto) 1.3 TH/MM3 Monocytes # (Auto) 0.5 TH/MM3 Eosinophils # (Auto) 0.0 TH/MM3 Basophils # (Auto) 0.0 TH/MM3 CBC Comment DIFF FINAL Differential Comment Prothrombin Time 10.7 SEC Prothromb Time International Ratio 1.1 RATIO Activated Partial Thromboplast Time 25.0 SEC Blood Urea Nitrogen 9 MG/DL Creatinine 0.92 MG/DL Random Glucose 95 MG/DL Total Protein 7.2 GM/DL Albumin 3.7 GM/DL Calcium Level 8.8 MG/DL Alkaline Phosphatase 88 U/L Aspartate Amino Transf (AST/SGOT) 22 U/L Alanine Aminotransferase (ALT/SGPT) 23 U/L Total Bilirubin 0.3 MG/DL Sodium Level 141 MEQ/L Potassium Level 3.9 MEQ/L Chloride Level 106 MEQ/L Carbon Dioxide Level 29.9 MEQ/L Anion Gap 5 MEQ/L Estimat Glomerular Filtration Rate 103 ML/MIN Lipase 154 U/L Urine Color YELLOW Urine Turbidity CLEAR Urine pH 8.0 Urine Specific [employer] 1.024 Urine Protein TRACE mg/dL Urine Glucose (UA) NEG mg/dL Urine Ketones NEG mg/dL Urine Occult Blood NEG Urine Nitrite NEG Urine Bilirubin NEG Urine Urobilinogen 2.0 MG/DL Urine Leukocyte Esterase NEG Urine RBC LESS THAN 1 /hpf Urine WBC 1 /hpf Urine Squamous Epithelial Cells <1 /hpf Urine Mucus FEW /lpf Microscopic Urinalysis Comment CULT NOT INDICATED MDM Medical Decision Making Medical Screen Exam Complete: Yes Emergency Medical Condition: Yes Interpretation(s) EKG: Sinus, rate 67, normal axis, normal intervals, no acute ischemic abnormality. Differential Diagnosis Appendicitis, colitis, diverticulitis, gastritis, hepatobiliary disease, pancreatitis Narrative Course Vital signs reviewed. CBC is unremarkable. CMP is unremarkable. Lipase is 154. UA is not suggestive of UTI. CT abdomen pelvis: CONCLUSION: 1. No acute findings. Mild constipation. 4.3 cm left renal cyst. Patient was made aware of all findings. He was provided morphine and a GI cocktail, and on reassessment he states he feels significantly improved. He likely had some gastritis after eating [employer] today. On reassessment the patient shows me that the tip of his penis is erythematous and irritated. He states he was here a few months ago for this and was prescribed an ointment, however his symptoms have not improved. On exam the patient does appear to have balanitis. There are no ulcerative lesions. Foreskin is retractable. Scrotal exam is within normal limits without masses, swelling, or tenderness. Plan is to give him a dose of oral Diflucan here and discharge him home with clotrimazole. I will also given the information to the urologist research nurse practitioner to make an appointment with this week. He was also advised to follow-up with his primary care physician this week. He is stable for discharge home with outpatient follow-up. He was advised on when to return to the emergency department. He verbalizes understanding and agreement with plan. Diagnosis Primary Impression: Abdominal pain Qualified Codes: R10.84 - Generalized abdominal pain Additional Impressions: Balanitis Renal cyst, left Referrals: Sridhar Hanna MD 3 days Urologist Primary Care Physician 3 days Additional Instructions: Follow-up with a primary care physician this week. Follow-up with urologist or a urologist of your choice this week. Return to the emergency department for worsening symptoms or any other concerns. Scripts Clotrimazole Topical (Clotrimazole Topical) 1% Soln 1 APPLIC TOPICAL BID for Fungal Infection, #30 ML 0 Refills Prov: Ge Cade MD 07/22/17 Disposition: 01 DISCHARGE HOME Condition: Stable Ge Cade MD Jul 22, 2017 20:25
[2017-07-22] MEDS ORDERED: DIATRIZOATE MEGLUM/DIATRIZOATE SOD 9 ML CUP PO ONE (20:30)
[2017-07-22] MEDS ORDERED: SODIUM CHLORIDE 0.9% FLUSH 10 ML FLUSH IV FLUSH PRN (20:30)
[2017-07-22] MEDS ORDERED: MORPHINE SULFATE 4 MG/ML INJ IV PUSH ONE (20:30)
[2017-07-22] MEDS ORDERED: ONDANSETRON HCL 4 MG/2 ML VIAL IV PUSH ONE (20:30)
--- NOTE | 2017-07-22 20:52 | RADRPT ---
EXAM DATE/TIME: 07/22/2017 20:38 [facility] COMPARISON: No previous studies available for comparison. INDICATIONS : Abdomen pain. ORAL CONTRAST: No oral contrast ingested. RADIATION DOSE: 30.65 CTDIvol (mGy) ; Patient body habitus MEDICAL HISTORY : Cardiovascular disease. Hypertension. Gastroesophageal reflux disease. SURGICAL HISTORY : None. ENCOUNTER: Initial ACUITY: 1 day PAIN SCALE: 6/10 LOCATION: Bilateral abdomen TECHNIQUE: Volumetric scanning of the abdomen and pelvis was performed. Using automated exposure control and ad justment of the mA and/or kV according to patient size, radiation dose was kept as low as reasonably achievable to obtain optimal diagnostic quality images. DICOM format image data is available electro nically for review and comparison. FINDINGS: Minimal linear scarring or atelectasis at the lung bases. No acute findings in the liver, spleen, adrenals, right kidney or pancreas. 4.3 cm left renal cyst. A ppendix has normal caliber and there is gas present in the appendix distally. Mild constipation present. No bowel obstruction. No free air or free fluid. Moderate osteoarthritis o f the hips. CONCLUSION: 1. No acute findings. Mild constipation. 4.3 cm left renal cyst. Allen Blackwell MD on July 22, 2017 at 20:46 Board Certified Radiologist. This report was verified electronically.
[2017-07-22 21:25] LABS: AUTOMATED NEUTROPHIL # 5.7 TH/MM3 (1.8-7.7); BASOPHIL % 0.4 % (0.0-2.0); EOSINOPHIL % 0.3 % (0.0-4.0); HEMATOCRIT 37.8 % (39.0-51.0); HEMOGLOBIN 13.2 GM/DL (13.0-17.0); LYMPH % 17.7 % (9.0-44.0); LYMPHOCYTE # 1.3 TH/MM3 (1.0-4.8); MEAN CELL VOLUME 86.4 FL (80.0-100.0); MEAN CORPUSCULAR HEMOGLOBIN 30.2 PG (27.0-34.0); MEAN PLATELET VOLUME 7.4 FL (7.0-11.0); MONO % 6.3 % (0.0-8.0); MONOCYTE # 0.5 TH/MM3 (0-0.9); NEUT % 75.3 % (16.0-70.0); PLATELET COUNT 208 TH/MM3 (150-450); RED BLOOD COUNT 4.37 MIL/MM3 (4.50-5.90); RED CELL DISTRIBUTION WIDTH 12.5 % (11.6-17.2); WHITE BLOOD COUNT 7.6 TH/MM3 (4.0-11.0)
[2017-07-22 21:34] LABS: INTERNATIONAL NORMALIZED RATIO 1.1 RATIO; PROTHROMBIN TIME - PATIENT 10.7 SEC (9.8-11.6)
[2017-07-22 21:43] LABS: ALBUMIN 3.7 GM/DL (3.4-5.0); AST (GOT) 22 U/L (15-37); BICARBONATE 29.9 MEQ/L (21.0-32.0); BLOOD UREA NITROGEN 9 MG/DL (7-18); CALCIUM 8.8 MG/DL (8.5-10.1); CHLORIDE 106 MEQ/L (98-107); CREATININE 0.92 MG/DL (0.60-1.30); GLOMERULAR FILTRATION RATE 103 ML/MIN (>89); GLUCOSE,RANDOM 95 MG/DL (74-106); SODIUM (NA) 141 MEQ/L (136-145)
[2017-07-22 21:44] LABS: ALT (GPT) 23 U/L (12-78)
[2017-07-22] MEDS ORDERED: ALUMINUM/MAGNESIUM/SIMETH 30 ML CUP PO ONE (21:45)
[2017-07-22] MEDS ORDERED: LIDOCAINE VISCOUS 2% SOLN 15 ML UDC PO ONE (21:45)
[2017-07-22 21:46] LABS: ALKALINE PHOSPHATASE 88 U/L (45-117); TOTAL BILIRUBIN ADULT 0.3 MG/DL (0.2-1.0); TOTAL PROTEIN 7.2 GM/DL (6.4-8.2)
[2017-07-22 21:47] VITALS: O2SAT 98
[2017-07-22] MEDS ORDERED: CLOTR1%T TOPICAL (22:43)
[2017-07-22] MEDS ORDERED: FLUCONAZOLE 100 MG TAB PO ONE (22:45)
[2017-07-22 22:56] LABS: BILIRUBIN, URINE NEG (NEG); BLOOD, URINE NEG (NEG); GLUCOSE,URINE NEG (NEG); KETONE, URINE NEG (NEG); MUCUS URINE FEW /lpf (OCC); NITRITE,URINE NEG (NEG); SQUAMOUS EPITHELIAL CELL URINE <1 /hpf (0-5); URINE COLOR YELLOW (YELLW/STRAW); URINE LEUKOCYTE ESTERASE NEG (NEG)
--- NOTE | 2017-07-23 07:53 | EKG ---
Date Performed: 07/22/2017 Time Performed: 21:51:43 PTAGE: 57 years EKG: Sinus rhythm POSSIBLE RIGHT VENTRICULAR CONDUCTION DELAY BORDERLINE ECG No significant change from prior electroc ardiogram. DOCTOR: Jake Lim Interpretating Date/Time 07/23/2017 07:51:55
== END 2017-07-22 23:32 | disposition home or self-care (01) ==
LOC: NEPD 20:10
DX: R10.84 Generalized abdominal pain (principal); N48.1 Balanitis; N28.1 Cyst of kidney, acquired; I11.0 Hypertensive heart disease with heart failure; I50.9 Heart failure, unspecified; E78.00 Pure hypercholesterolemia, unspecified; M10.9 Gout, unspecified
CPT/HCPCS: 74176; 80053; 81001; 83690; 85025; 85610; 85730; 93005; 96361; 96374; 96375; 99285; J2270; J2405; J7030